=== PATIENT | female | born 1935 | race Caucasian/White ===

== ENCOUNTER → 2017-07-26 | Day surgery (SDC) | payer OTHER ==
[2017-07-13 15:22] VITALS: Ht 172.7 cm; Wt 72.7 kg
[~2017-07-26] VITALS: Ht 172.7 cm; Wt 72.7 kg
[~2017-07-26] MED LIST: 500ML BSS 0.3ML EPI 1:1000PF IRRIG ONE; ACETAMINOPHEN 325 MG TAB PO PRN; ALEN70TA2 PO; AMLO2.5T PO; AMVISC PLUS 0.8ML SYRINGE INT OCU ONE; ASCA500 PO; ATROPINE SULFATE 0.1 MG/ML 5ML SYR IV PRN; BRIMONIDINE TART 0.2% OP SOLN PER DROP CHARGE ONE; BSS FLUSH ONE; CALC600T9 PO; ENDOCOAT 0.85ML SYRINGE INT OCU ONE; EpHEDrine SULFATE INJ 50 MG/ML AMP IV PRN; EpINEphrine INJ 1MG/ML AMP 1 MG/ML AMP ONE; HYDR25TA4 PO; LACTATED RINGER'S 1000ML 500 ML IV SCH; LIDOCAINE 4% OP SOLN DROP CHARGE ONE; LIDOCAINE 4% OP SOLN DROP CHARGE OPL SCH; LIDOCAINE HCL 1% MPF 2 ML VIAL ONE; LSN40 PO; MIDAZOLAM HCL 1 MG/ML 2ML VIAL ONE; MOXIFLOXACIN OPH SOLN PER DROP CHARGE ONE; MULTCAP33 PO; POTA99TA PO; POVIDONE-IODINE OP SOLN 30 ML BTL ONE; PRLSR20 PO; PROPARACAINE 0.5% OP SOLN PER DROP CHARGE OPL SCH; SERT25TA PO; SIMV20TA2 PO; TOBRAMYCIN/DEXAMETHASONE OPH OINT PER APPLN CHARGE ONE; VTMB122500 PO
[2017-07-26] MEDS: PHENYLEPHRINE HCL 2.5% OP SOLN PER DROP CHARGE OPL SCH ×2 (08:05→08:10)
--- NOTE | 2017-07-26 08:05 | History & Physical Bridge - SC ---
H&P Re-Evaluation Bridge Note: I have examined the patient, reviewed the History & Physical and in the interval since the performance of the History & Physical I have noted the following changes of clinical significance: No changes noted
[2017-07-26] MEDS: TROPICAMIDE 1% OP SOLN PER DROP CHARGE OPL SCH ×2 (08:06→08:11)
[2017-07-26] MEDS: CYCLOPENTOLATE HCL 1% OP SOLN PER DROP CHARGE OPL SCH ×2 (08:07→08:12)
[2017-07-26] MEDS: KETOROLAC 0.5% OP SOLN PER DROP CHARGE OPL SCH ×2 (08:08→08:13)
[2017-07-26] MEDS: MOXIFLOXACIN OPH SOLN PER DROP CHARGE OPL SCH ×2 (08:09→08:19)
--- NOTE | 2017-07-26 08:56 | [facility] Operative Report ---
Operative Report Operative Date Jul 26, 2017. Pre-Operative Diagnosis Cataract Left Eye Post-Operative Diagnosis same as preop Procedure(s) Performed Left Cataract Phacoemulsification With Intraocular Lens Implant Surgeon Dr. Madison Transportation Mechanic Surgeon(s) none Estimated Blood Loss 0ml Findings cataract left eye Fluids see anesthesia record Specimens none Drains None Anesthesia Type MAC Complication(s) none Disposition no Recovery Room / PACU Indications decreased vision left eye Description of Procedure After informed consent was obtained in the holding area the patient was wheeled back to the operating room where cardiac monitoring leads and oxygen by nasal cannula was administered by Anesthesia. Gentle IV sedation was given, and the patient's left eye was prepped and draped in usual sterile fashion. A wire lid speculum was placed into the left eye and the operating microscope was swung into position. Using 0.12 forceps and a Supersharp blade a paracentesis port was made 2 o'clock hours away from the 3 o'clock position of the patient's left eye. 1% non-preserved Lidocaine was then injected into the anterior chamber for anesthesia. A 2.0 mm keratotome blade was then used to make a shelved clear corneal incision at the 3 o'clock position of the left eye. Amvisc was injected into the anterior chamber and a cystotome and Utrata forceps were used to perform a curvilinear capsulorrhexis. BSS on a hydrodissection cannula was used to hydrodissect the lens nucleus away from the capsular bag. The phacoemulsification handpiece was then used in a stop and chop fashion to remove the lens nucleus. The irrigation and aspiration handpiece was then used to remove the residual cortical material. Amvisc was injected into the capsular bag and anterior chamber and a Bausch & Lomb MX60 19.5 Diopter intraocular lens was injected into the capsular bag. Irrigation and aspiration handpiece was used to remove the residual viscoelastic material. The wounds were hydrated and noted to be watertight. The wire lid speculum was removed from the eye. Vigamox, Brimonidine, and TobraDex ointment were placed on the eye and it was shielded. It should be noted that EndoCoat was used extensively during the case to protect the cornea endothelium. DISPOSITION: The patient tolerated the procedure well and was wheeled to the post anesthesia care unit in stable condition. I attest to the content of the Intraoperative Record and any orders documented therein. Any exceptions are noted below. I attest to the content of the Intraoperative Record and any orders documented therein. Any exceptions are noted below.
[2017-07-26 08:58] VITALS: TEMP 36
--- NOTE | 2017-07-26 08:58 | Discharge Instructions-SurgCtr ---
Discharge Instructions Date of Service Jul 26, 2017. Visit Reason for Visit: Cataract Left Eye Discharge Discharge Diagnosis / Problem: cataract left eye Discharge Goals Goal(s): Improve function Activity Recommendations Activity Limitations: per Instructions/Follow-up section Lifting Limitations: no more than 5 pounds Anesthesia . Post Anesthesia Instructions: If you have had General Anesthesia or IV Sedation: * Do not drive today. * Resume driving when surgeon permits. * Do not make important decisions or sign legal documents today. * Call surgeon for: 1. Temperature elevations greater than 101 degrees F. 2. Uncontrollable pain. 3. Excessive bleeding. 4. Persistent nausea and vomiting. 5. Medication intolerance (nausea, vomiting or rash). * For nausea and vomiting use only clear liquids such as: tea, soda, bouillon until nausea subsides, then gradually increase diet as tolerated. * If you have any concerns or questions, call your surgeon's office. If physician is unavailable and it is an emergency, call 911 or go to the nearest emergency room. . Instructions / Follow-Up Instructions / Follow-Up ACTIVITY RECOMMENDATIONS: * Light activities * You may walk outside, read, watch television. * Mild irritation and blurred vision are common for the first few days, redness around the white part of the eye is common. MEDICATIONS: Resume previous medications unless instructed otherwise by your surgeon. Eye drops (today and tomorrow): Gatifloxacin - one drop in operative eye every 2 hours while awake Prednisolone 1% - one drop in operative eye every 2 hours while awake Bromfenac - one drop in operative eye once daily SPECIAL CARE INSTRUCTIONS: * If any problems or concerns, please call Dr. Madison's office at . * Keep plastic shield taped over eye to sleep at night. * Keep plastic shield taped over eye except to administer eye drops. * Keep plastic shield on until office visit the following day. FOLLOW UP VISIT: Follow-up with Dr. Madison in the [place] office as scheduled. If not already scheduled, please call the office at . Diet Recommendations Home Diet: resume previous diet Procedures Procedures Performed: Left Cataract Phacoemulsification With Intraocular Lens Implant Pending Studies Studies pending at discharge: no Medical Emergencies . Who to Call and When: Medical Emergencies: If at any time you feel your situation is an emergency, please call 911 immediately. . Non-Emergent Contact Non-Emergency issues call your: Cut Out Stitcher . . "Provider Documentation" section prepared by Stevan Madison. .
--- NOTE | 2017-07-26 09:12 | Anesthesia Progress Nt - [facility] ---
Anesthesia Post Op Note Date & Time Jul 26, 2017 at 09:11 Vital Signs Pain Intensity: 0 Vital Signs Past 12 Hours Date Time Temp Pulse Resp B/P (MAP) Pulse Ox O2 Delivery O2 Flow Rate FiO2 07/26/17 08:58 36 61 16 123/79 (94) 94 Room Air 07/26/17 07:51 36.5 70 18 147/82 (103) 95 Room Air Notes Mental Status: alert / awake / arousable, participated in evaluation Pt Amnestic to Procedure: Yes Nausea / Vomiting: adequately controlled Pain: adequately controlled Airway Patency, RR, SpO2: stable & adequate BP & HR: stable & adequate Hydration State: stable & adequate Anesthetic Complications: no major complications apparent
[2017-07-26 09:34] VITALS: BP 125/72; PULSE 58; O2SAT 96
== END | disposition home or self-care (01) ==
LOC: X.SURG 07:30
PROVIDERS: ATTEND Ophthalmology
DX: H26.9 Unspecified cataract (principal); I10 Essential (primary) hypertension; Z88.0 Allergy status to penicillin; F32.9 Major depressive disorder, single episode, unspecified; Z79.82 Long term (current) use of aspirin; Z79.899 Other long term (current) drug therapy

== ENCOUNTER → 2017-08-16 | Day surgery (SDC) | payer OTHER ==
[2017-08-06 08:33] VITALS: Ht 172.7 cm; Wt 72.7 kg
[~2017-08-16] VITALS: Ht 172.7 cm; Wt 72.7 kg
[~2017-08-16] MED LIST changes: -LIDOCAINE 4% OP SOLN DROP CHARGE OPL SCH; +LIDOCAINE 4% OP SOLN DROP CHARGE OPR SCH; -PROPARACAINE 0.5% OP SOLN PER DROP CHARGE OPL SCH; +PROPARACAINE 0.5% OP SOLN PER DROP CHARGE OPR SCH
[2017-08-16] MEDS: PHENYLEPHRINE HCL 2.5% OP SOLN PER DROP CHARGE OPR SCH ×2 (08:48→08:53)
[2017-08-16] MEDS: TROPICAMIDE 1% OP SOLN PER DROP CHARGE OPR SCH ×2 (08:49→08:54)
[2017-08-16] MEDS: CYCLOPENTOLATE HCL 1% OP SOLN PER DROP CHARGE OPR SCH ×2 (08:50→08:55)
[2017-08-16] MEDS: KETOROLAC 0.5% OP SOLN PER DROP CHARGE OPR SCH ×2 (08:51→08:56)
[2017-08-16] MEDS: MOXIFLOXACIN OPH SOLN PER DROP CHARGE OPR SCH ×2 (08:52→08:59)
--- NOTE | 2017-08-16 10:14 | [facility] Operative Report ---
Operative Report Operative Date August 16, 2017. Pre-Operative Diagnosis Right Eye Cataract Post-Operative Diagnosis same as preop Procedure(s) Performed Right Cataract Phacoemulsification With Intraocular Lens Implant Surgeon Dr. Madison Lawnmower Repair Mechanic Surgeon(s) none Estimated Blood Loss 0ml Findings cataract right eye Fluids see anesthesia record Specimens none Drains None Anesthesia Type MAC Complication(s) none Disposition no Recovery Room / PACU Indications decreased vision right eye Description of Procedure After informed consent was obtained in the holding area the patient was wheeled back to the operating room where cardiac monitoring leads and oxygen by nasal cannula was administered by Anesthesia. Gentle IV sedation was given, and the patient's right eye was prepped and draped in usual sterile fashion. A wire lid speculum was placed into the right eye and the operating microscope was swung into position. Using 0.12 forceps and a Supersharp blade a paracentesis port was made 2 o'clock hours away from the 9 o'clock position of the patient's right eye. 1% non-preserved Lidocaine was then injected into the anterior chamber for anesthesia. A 2.0 mm keratotome blade was then used to make a shelved clear corneal incision at the 9 o'clock position of the right eye. Amvisc was injected into the anterior chamber and a cystotome and Utrata forceps were used to perform a curvilinear capsulorrhexis. BSS on a hydrodissection cannula was used to hydrodissect the lens nucleus away from the capsular bag. The phacoemulsification handpiece was then used in a stop and chop fashion to remove the lens nucleus. The irrigation and aspiration handpiece was then used to remove the residual cortical material. Amvisc was injected into the capsular bag and anterior chamber and a Bausch & Lomb MX60E 20.0 Diopter intraocular lens was injected into the capsular bag. Irrigation and aspiration handpiece was used to remove the residual viscoelastic material. The wounds were hydrated and noted to be watertight. The wire lid speculum was removed from the eye. Vigamox, Brimonidine, and TobraDex ointment were placed on the eye and it was shielded. It should be noted that EndoCoat was used extensively during the case to protect the cornea endothelium. DISPOSITION: The patient tolerated the procedure well and was wheeled to the post anesthesia care unit in stable condition. I attest to the content of the Intraoperative Record and any orders documented therein. Any exceptions are noted below. I attest to the content of the Intraoperative Record and any orders documented therein. Any exceptions are noted below.
--- NOTE | 2017-08-16 10:15 | Discharge Instructions-SurgCtr ---
Discharge Instructions Date of Service August 16, 2017. Visit Reason for Visit: Cataract Right Eye Discharge Discharge Diagnosis / Problem: cataract right eye Discharge Goals Goal(s): Improve function Activity Recommendations Activity Limitations: per Instructions/Follow-up section Lifting Limitations: no more than 5 pounds Anesthesia . Post Anesthesia Instructions: If you have had General Anesthesia or IV Sedation: * Do not drive today. * Resume driving when surgeon permits. * Do not make important decisions or sign legal documents today. * Call surgeon for: 1. Temperature elevations greater than 101 degrees F. 2. Uncontrollable pain. 3. Excessive bleeding. 4. Persistent nausea and vomiting. 5. Medication intolerance (nausea, vomiting or rash). * For nausea and vomiting use only clear liquids such as: tea, soda, bouillon until nausea subsides, then gradually increase diet as tolerated. * If you have any concerns or questions, call your surgeon's office. If physician is unavailable and it is an emergency, call 911 or go to the nearest emergency room. . Instructions / Follow-Up Instructions / Follow-Up ACTIVITY RECOMMENDATIONS: * Light activities * You may walk outside, read, watch television. * Mild irritation and blurred vision are common for the first few days, redness around the white part of the eye is common. MEDICATIONS: Resume previous medications unless instructed otherwise by your surgeon. Eye drops (today and tomorrow): Gatifloxacin - one drop in operative eye every 2 hours while awake Prednisolone 1% - one drop in operative eye every 2 hours while awake Bromfenac - one drop in operative eye once daily SPECIAL CARE INSTRUCTIONS: * If any problems or concerns, please call Dr. Madison's office at . * Keep plastic shield taped over eye to sleep at night. * Keep plastic shield taped over eye except to administer eye drops. * Keep plastic shield on until office visit the following day. FOLLOW UP VISIT: Follow-up with Dr. Madison in the [place] office as scheduled. If not already scheduled, please call the office at . Diet Recommendations Home Diet: resume previous diet Procedures Procedures Performed: Right Cataract Phacoemulsification With Intraocular Lens Implant Pending Studies Studies pending at discharge: no Medical Emergencies . Who to Call and When: Medical Emergencies: If at any time you feel your situation is an emergency, please call 911 immediately. . Non-Emergent Contact Non-Emergency issues call your: Clinical Editor . . "Provider Documentation" section prepared by Stevan Madison. .
--- NOTE | 2017-08-16 10:30 | Anesthesia Progress Nt - [facility] ---
Anesthesia Post Op Note Date & Time August 16, 2017 at 10:30 Vital Signs Pain Intensity: 0 Vital Signs Past 12 Hours Date Time Temp Pulse Resp B/P (MAP) Pulse Ox O2 Delivery O2 Flow Rate FiO2 08/16/17 10:16 36.7 58 16 150/85 (106) 96 Room Air 08/16/17 08:40 36.4 62 18 177/90 (119) 94 Room Air Notes Mental Status: alert / awake / arousable, participated in evaluation Pt Amnestic to Procedure: Yes Nausea / Vomiting: adequately controlled Pain: adequately controlled Airway Patency, RR, SpO2: stable & adequate BP & HR: stable & adequate Hydration State: stable & adequate Anesthetic Complications: no major complications apparent
[2017-08-16 10:35] VITALS: BP 161/79; PULSE 56; O2SAT 95
== END | disposition home or self-care (01) ==
LOC: X.SURG 08:23
PROVIDERS: ATTEND Ophthalmology
DX: H25.11 Age-related nuclear cataract, right eye (principal); I10 Essential (primary) hypertension; K21.9 Gastro-esophageal reflux disease without esophagitis; Z79.82 Long term (current) use of aspirin; Z88.0 Allergy status to penicillin

== ENCOUNTER 2020-08-16 07:33 | Observation (INO) ==
--- NOTE | 2020-07-19 13:07 | PAT Medication Instructions ---
Medication Instructions Date of Service July 19, 2020 Home Medications amlodipine 2.5 mg tablet 2.5 mg PO QAM cyanocobalamin (vitamin B-12) 100 mcg tablet 100 mcg PO QAM hydrochlorothiazide 25 mg tablet 25 mg PO QAM lisinopril 40 mg tablet 40 mg PO QAM multivitamin 1 tab PO QAM omeprazole 20 mg capsule,delayed release 20 mg PO QAM potassium gluconate 595 mg (99 mg) tablet 595 mg PO QAM sertraline 25 mg tablet 25 mg PO QAM simvastatin 20 mg tablet 20 mg PO QAM acetaminophen 500 mg PO TID ascorbic acid (vitamin C) [Vitamin C] 1 g PO QAM cholecalciferol (vitamin D3) [Vitamin D3] 1,000 unit PO QAM vit C,I-Ua-notlk-lutein-zeaxan [PreserVision AREDS-2] 1 tab PO BID STOP taking 2 weeks before surgery (or as soon as possible if surgery is within 2 weeks) vit C,V-Zr-dnesl-lutein-zeaxan [PreserVision AREDS-2] 1 tab PO BID DO NOT take the morning of surgery cyanocobalamin (vitamin B-12) 100 mcg tablet 100 mcg PO QAM hydrochlorothiazide 25 mg tablet 25 mg PO QAM lisinopril 40 mg tablet 40 mg PO QAM multivitamin 1 tab PO QAM potassium gluconate 595 mg (99 mg) tablet 595 mg PO QAM ascorbic acid (vitamin C) [Vitamin C] 1 g PO QAM cholecalciferol (vitamin D3) [Vitamin D3] 1,000 unit PO QAM Take morning of surgery With a small sip of water, OTHERWISE NOTHING TO EAT OR DRINK AFTER MIDNIGHT: amlodipine 2.5 mg tablet 2.5 mg PO QAM omeprazole 20 mg capsule,delayed release 20 mg PO QAM sertraline 25 mg tablet 25 mg PO QAM simvastatin 20 mg tablet 20 mg PO QAM acetaminophen 500 mg PO TID (okay to take up to 4 hours prior to surgery if needed) Take evening before surgery acetaminophen 500 mg PO TID Other Notes If you have any questions please call us at [phone] or [phone] or [phone] or [phone]
--- NOTE | 2020-07-22 11:09 | Anesthesiology Consultation ---
Date of Service July 22, 2020 Assessment & Plan (1) Encounter for pre-operative examination: - COVID screening: Per assessment on 07/22: Travel screen negative, no known COVID-19 positive contacts or current COVID-19 related symptoms. Patient fully v accinated. Surgeon arranging preop COVID testing (scheduled 08/12; [facility]). Awaiting results. - PCP office visit (06/28/20): Aware of upcoming orthopedic surgery. "She had shingles 2 years ago and has chronic itchiness from it.. Getting out walking.. She is getting her R knee done on 08/[address] Mccallum." Chart Review Chart Review: Acceptable Risk for Surgery and Patient seen in Pre Admission Testing Teaching & Discussion Pre-Anesthesia Teaching/Discussion Notes: Instructed NPO after midnight before surgery,except medications with 15 cc of water. Medication instructions provided according to the PAT guidelines. History Surgery Operation Date: 08/16/20 09:05 Proposed Procedures p Right Total Knee Arthroplasty - Malik Mccallum, DO Height/Weight Height: 5 ft 8 in Weight: 71.1 kg Allergies Allergy/AdvReac Type Severity Reaction Status Date / Time Penicillins Allergy Mild Rash Verified 07/19/20 15:58 Medications Home Medications Medication Instructions Recorded Confirmed Last Taken amlodipine 2.5 mg tablet 2.5 mg PO QAM 06/19/20 07/12/20 Unknown cyanocobalamin (vitamin B-12) 100 100 mcg PO QAM 06/19/20 07/12/20 Unknown mcg tablet hydrochlorothiazide 25 mg tablet 25 mg PO QAM 06/19/20 07/12/20 Unknown lisinopril 40 mg tablet 40 mg PO QAM 06/19/20 07/12/20 Unknown multivitamin 1 tab PO QAM 06/19/20 07/12/20 Unknown omeprazole 20 mg capsule,delayed 20 mg PO QAM 06/19/20 07/12/20 Unknown release potassium gluconate 595 mg (99 mg) 595 mg PO QAM 06/19/20 07/12/20 Unknown tablet sertraline 25 mg tablet 25 mg PO QAM 06/19/20 07/12/20 Unknown simvastatin 20 mg tablet 20 mg PO HS 06/19/20 07/22/20 Unknown acetaminophen 500 mg PO TID 07/12/20 07/12/20 Unknown ascorbic acid (vitamin C) [Vitamin 1 g PO QAM 07/12/20 07/12/20 Unknown C] cholecalciferol (vitamin D3) 1,000 unit PO QAM 07/12/20 07/12/20 Unknown [Vitamin D3] vit C,U-Aa-nzoog-lutein-zeaxan 1 tab PO BID 07/12/20 07/12/20 Unknown [PreserVision AREDS-2] Past Medical History Medical History Acid reflux Anxiety History of gastric ulcer Remote hx per records Hyperlipidemia Hypertension Macular degeneration of both eyes Memory loss occasional Senile osteoporosis Exercise / Class Metabolic Activity II 4-5 Yardwork/Stairs/Walk up hill Past Family History Family History Brother Family history of diabetes mellitus Other No family history of adverse response to anesthesia Past Surgical History Surgical History History of bilateral cataract extraction History of colonoscopy History of esophagogastroduodenoscopy (EGD) History of ovarian cystectomy History of tooth extraction Past Anesthesia History No Hx of Anesthesia Complications and No Family Hx of Anesthesia Complications History of PONV No Hx of PONV and No Hx of Motion Sickness Social History Smoking Status: Never smoker Do You Dip or Chew Tobacco: No Hx Alcohol Use: No Hx Substance Use: No substance use type: does not use Review of Systems Patient denies chest pain, shortness of breath, dyspnea on exertion, fever, chills, cough, wheezing, palpitations. Physical Exam Vital Signs VITALS BP 100/59 P 80 TEMP SP02 94%RA RESP 16 PHYSICAL Mildly decreased cervical extension range of motion. Full TMJ range of motion. TMD 3.5 finger breaths Mallampati Score 3 Dentition: lower/upper partial Lungs: clear throughout to auscultation Cardiac: regular rate and rhythm, no murmurs noted Spine: kyphosis Carotid arteries: negative bruit Extremities: no edema Testing Laboratory Results 07/22/20 11:35 07/22/20 11:35 PT 10.9 Seconds (9.0-12.0) 07/22/20 11:35 INR 1.1 (0.9-1.1) 07/22/20 11:35 APTT 28.0 Seconds (21.0-31.0) 07/22/20 11:35 Blood Type O Positive 07/22/20 11:35 Antibody Screen NEGATIVE 07/22/20 11:35 07/08/20 UA moderate blood, large esterase, negative nitrate, positive bacteria/WBC > pr escribed bactrim rx for complaints of UTI symptoms at time of testing > now resolved URINE CULTURE <[id number] colonies/ml mixed normal roland Electrocardiogram Date: 07/22/20 Findings: + NSR @ (70) Chest X-Ray Date: 07/22/20 FINDINGS: There is a moderate hiatus hernia, unchanged. The heart is normal in size. No pleural effusions. No pneumothorax. Calcifications within the aortic knob. Mild eventration of the right hemidiaphragm, unchanged. IMPRESSION: No acute process within the chest. Moderate hiatus hernia, unchange d.
[2020-07-22 11:56] LABS: Eosinophils # (auto) 0.09 K/uL (0-0.5); Eosinophils % (auto) 1.5 %; Hematocrit (blood only) 38.6 % (37-47); Hemoglobin 13.6 g/dL (12.0-16.0); Immature Granulocytes # (auto) 0.01 K/uL (0.00-0.02); Immature Granulocytes % (auto) 0.2 %; Lymphocytes # (auto) 1.49 K/uL (1.2-3.4); Lymphocytes % (auto) 24.3 %; Mean Corpuscular Hemoglobin 32.5 pg (25-34); Mean Corpuscular Hgb Conc 35.2 g/dL (32-36); Mean Corpuscular Volume 92.1 fL (80-100); Mean Platelet Volume 9.5 fL (7.4-10.4); Monocytes # (auto) 0.56 K/uL (0.11-0.59); Monocytes % (auto) 9.2 %; Neutrophils # (auto) 3.97 K/uL (1.4-6.5); Neutrophils % (auto) 64.8 %; Platelet Count 234 K/uL (130-400); RDW Coefficient of Variation 13.1 % (11.5-14.5); RDW Standard Deviation 44.5 fL (36.4-46.3); Red Blood Count 4.19 M/uL (4.2-5.4); White Blood Count 6.12 K/uL (4.8-10.8)
[2020-07-22 12:06] LABS: INR 1.1 (0.9-1.1); Partial Thromboplastin Ratio 1.1; Prothrombin Time 10.9 Seconds (9.0-12.0)
--- NOTE | 2020-07-22 12:20 | XRay Report ---
XR chest Pre-admission PA/Lat HISTORY: Preop. COMPARISON: Chest 06/20/2010. FINDINGS: There is a moderate hiatus hernia, unchanged. The heart is normal in size. No pleural effus ions. No pneumothorax. Calcifications within the aortic knob. Mild eventration of the right hemidiaph ragm, unchanged. IMPRESSION: 1. No acute process within the chest. 2. Moderate hiatus hernia, unchanged. ACT 112: Negative or not required by law. Electronically signed by: Jose Han M.D. 07/22/2020 12:19 PM
[2020-07-22 14:04] LABS: BUN Creatinine Ratio 24.3 (10-20); Calcium 8.9 mg/dl (8.5-10.1); Creatinine Clr Calc Pharmacy 55.3 ml/min; Est GFR (African American) 84.2; Est GFR (Non-African American) 72.7; Potassium 4.3 mmol/L (3.5-5.1)
--- NOTE | 2020-07-22 17:39 | Electrocardiogram Report ---
Test Reason : Blood Pressure : / mmHG Vent. Rate : 070 BPM Atrial Rate : 070 BPM P-R Int : 132 ms QRS Dur : 080 ms QT Int : 374 ms P-R-T Axes : 047 001 050 degrees QTc Int : 403 ms Normal sinus rhythm Normal ECG When compared with ECG of 09-JUN-2010 10:27, T wave inversion no longer evident in Inferior leads Confirmed by Adam Huff ([id number]) on 07/22/2020 5:38:51 PM Referred By: Malik Mccallum Confirmed By:Juan Francisco Huff
--- NOTE | 2020-08-15 07:39 | History & Physical Report ---
Date of Service August 15, 2020 Assessment & Plan (1) Osteoarthritis of right knee: We will proceed with a right total knee arthroplasty. Postoperatively she will be placed on aspirin for DVT prophylaxis and kept overnight in the hospital for postoperative medical management. She plans to use English Helper upon discharge. History of Present Illness Chief Complaint: Osteoarthritis right knee. Primary Care Provider: Chino SimpsonDO Rodriguez is a pleasant 85-year-old female who is been ill with chronic increasing right knee pain. X-rays and clinical examination have been diagnostic for advanced osteoarthritis of the right knee. After failing extensive conservative treatment, she has elected proceed with a right total knee arthroplasty.. Allergies Allergy/AdvReac Type Severity Reaction Status Date / Time Penicillins Allergy Mild Rash Verified 07/19/20 15:58 Home Medications Medication Instructions Recorded Confirmed Type amlodipine 2.5 mg tablet 2.5 mg PO QAM 06/19/20 07/12/20 History cyanocobalamin (vitamin B-12) 100 100 mcg PO QAM 06/19/20 07/12/20 History mcg tablet hydrochlorothiazide 25 mg tablet 25 mg PO QAM 06/19/20 07/12/20 History lisinopril 40 mg tablet 40 mg PO QAM 06/19/20 07/12/20 History multivitamin 1 tab PO QAM 06/19/20 07/12/20 History omeprazole 20 mg capsule,delayed 20 mg PO QAM 06/19/20 07/12/20 History release potassium gluconate 595 mg (99 mg) 595 mg PO QAM 06/19/20 07/12/20 History tablet sertraline 25 mg tablet 25 mg PO QAM 06/19/20 07/12/20 History simvastatin 20 mg tablet 20 mg PO HS 06/19/20 07/22/20 History acetaminophen 500 mg PO TID 07/12/20 07/12/20 History ascorbic acid (vitamin C) [Vitamin 1 g PO QAM 07/12/20 07/12/20 History C] cholecalciferol (vitamin D3) 1,000 unit PO QAM 07/12/20 07/12/20 History [Vitamin D3] vit C,L-Ok-xnbrg-lutein-zeaxan 1 tab PO BID 07/12/20 07/12/20 History [PreserVision AREDS-2] Past Med/Surg History Medical History Acid reflux Anxiety History of gastric ulcer Remote hx per records Hyperlipidemia Hypertension Macular degeneration of both eyes Memory loss occasional Senile osteoporosis Surgical History History of bilateral cataract extraction History of colonoscopy History of esophagogastroduodenoscopy (EGD) History of ovarian cystectomy History of tooth extraction Family History Brother Family history of diabetes mellitus Other No family history of adverse response to anesthesia Social History Smoking Status: Never smoker Second Hand Exposure: No; Hx Alcohol Use: No Hx Substance Use: No Preferred Language: Ukrainian Communication Ability: Effective Line Crew Supervisor Required: No Beliefs That Will Affect Care: None Current Living Situation: Spouse Assistive Devices: Denture - Upper and Glasses Review of Systems All systems reviewed & are unremarkable except as noted in HPI & below. Physical Exam On physical examination of the right knee, she has range of motion from 10 to 110 degrees. She cannot get full extension. She has no instability. She does have pain over the distal medial femoral condyle and over the lateral condyles as well.. Constitutional WD/WN, vitals as above Eyes PERRL, conjunctivae normal, anicteric sclerae ENMT external ear and nose normal, oropharynx normal Neck trachea midline, no thyromegaly Respiratory normal respiratory effort Cardiovascular RRR, no murmur, no edema Gastrointestinal (Abdomen) normal bowel sounds, soft, nontender, no hepatosplenomegaly Psychiatric A+Ox3, euthymic affect Results & Data Results & Data Laboratory Results . Diagnostic Findings X-rays of the right knee do show advanced osteoarthritis with joint space narrowing osteophyte formation and cenq-[id number]-czhp articulation.. PG Care Time/CCT Total # of Minutes Spent Total Time Spent with Patient: Total time spent is greater than 50% in coordination of care (as documented) at patient's floor/unit and/or counseling patient: Coding Level of Care Code None Diagnoses Osteoarthritis of right knee M17.11
[~2020-08-16 07:33] MED LIST changes: -500ML BSS 0.3ML EPI 1:1000PF IRRIG ONE; -ACETAMINOPHEN 325 MG TAB PO PRN; +ACETAMINOPHEN 500 MG TAB PO SCH; -ALEN70TA2 PO; -AMLO2.5T PO; -AMVISC PLUS 0.8ML SYRINGE INT OCU ONE; -ASCA500 PO; -ATROPINE SULFATE 0.1 MG/ML 5ML SYR IV PRN; -BRIMONIDINE TART 0.2% OP SOLN PER DROP CHARGE ONE; -BSS FLUSH ONE; +BUPIVACAINE 0.25% 30 ML VIAL ONE; +BUPIVACAINE 0.5 % 5 MG/1 ML PF 10ML VIAL ONE; -CALC600T9 PO; -ENDOCOAT 0.85ML SYRINGE INT OCU ONE; +EPINEPHrine INJ 1 MG/ML AMP ONE; -EpHEDrine SULFATE INJ 50 MG/ML AMP IV PRN; -EpINEphrine INJ 1MG/ML AMP 1 MG/ML AMP ONE; +FAMOTIDINE 20 MG TAB PO SCH; +GABAPENTIN 300 MG CAP PO SCH; -HYDR25TA4 PO; -LACTATED RINGER'S 1000ML 500 ML IV SCH; -LIDOCAINE 4% OP SOLN DROP CHARGE ONE; -LIDOCAINE 4% OP SOLN DROP CHARGE OPR SCH; -LIDOCAINE HCL 1% MPF 2 ML VIAL ONE; +LR 15ML/HR IV SCH; +LR 500ML BOLUS IV SCH; +LR 500ML BOLUS, THEN 15ML/HR IV SCH; +LR 60ML/HR IV SCH; -LSN40 PO; -MOXIFLOXACIN OPH SOLN PER DROP CHARGE ONE; -MULTCAP33 PO; -POTA99TA PO; -POVIDONE-IODINE OP SOLN 30 ML BTL ONE; -PRLSR20 PO; -PROPARACAINE 0.5% OP SOLN PER DROP CHARGE OPR SCH; +ROPIVACAINE 0.5% HCL/PF 150 MG, BUPIVACAINE 0.75% MPF 20 ML, EPINEPHrine 30MG/30ML (OR ... INFIL SCH; -SERT25TA PO; -SIMV20TA2 PO; -TOBRAMYCIN/DEXAMETHASONE OPH OINT PER APPLN CHARGE ONE; +TRANEXAMIC ACID 1,000 MG **IV Intra-op IV SCH; +TRANEXAMIC ACID 1,000 MG **IV Pre-op IV SCH; -VTMB122500 PO; +ceFAZolin 1000MG 1,000 MG/7.5 ML SYR IV SCH; +dexAMETHasone 4 MG TAB PO SCH
[2020-08-16] MEDS ORDERED: BUPIVACAINE 0.25% 30 ML VIAL ONE (07:59)
--- NOTE | 2020-08-16 08:18 | History & Physical Bridge Note ---
Date of Service August 16, 2020 History & Physical Bridge Note I have examined the patient, reviewed the History & Physical and in the interval since the performance of the History & Physical I have noted the following changes of clinical significance: no changes noted
[2020-08-16] MEDS ORDERED: ORTHO JOINT ANESTHETIC ONE (08:39)
[2020-08-16] MEDS ORDERED: fentaNYL citrate 100 MCG/2 ML VIAL IV PRN (08:45)
[2020-08-16] MEDS ORDERED: ONDANSETRON INJ 2 MG/ML 2 ML VIAL IV PRN ×2 (08:45→12:03)
[2020-08-16] MEDS ORDERED: ePHEDrine sulfate 50 MG/ML AMP IV PRN (08:45)
[2020-08-16] MEDS ORDERED: ATROPINE SULFATE 0.1 MG/ML 10ML SYR IV PRN (08:45)
[2020-08-16] MEDS ORDERED: HYDROmorphone INJ 2 MG/ML SYR/VIAL IV PRN (08:45)
[2020-08-16] MEDS ORDERED: PROPOFOL IV EMULSION 10 MG/ML 20 ML VIAL IV ONE ×2 (09:12→09:55)
[2020-08-16] MEDS ORDERED: ePHEDrine sulfate 50 MG/ML SYR ONE (09:39)
--- NOTE | 2020-08-16 10:29 | Operative Report ---
PG Post Operative Report Pre & Post Diagnosis Operation Date: 08/16/20 10:00 Pre-Op Diagnosis: Right Knee Degenerative Joint Disease Post-Op Diagnosis: Right Knee Degenerative Joint Disease I identified the patient and participated in the time-out.: Yes Procedure Operation Date: 08/16/20 10:00 Actual Procedures p Right Total Knee Arthroplasty, Cemented(Right) - Malik Mccallum DO Surgeon Malik Mccallum DO [employer] Malik Montano PAC Estimated Blood Loss 10 Findings Consistent with Post-Op Diagnosis Specimens Right femoral and tibial bone Complications none Disposition Disposition: Recovery Room Indications Jennifer is a pleasant 85-year-old female who has been dealing with chronic increasing right knee pain. X-rays and clinical examination are diagnostic for advanced osteoarthritis of the right knee. After failing conservative treatment, she has elected to proceed with a right total knee arthroplasty. Description of Procedure Implants used: I used a Ade Person[employer] total knee arthroplasty system with a size 9 standard femur, E tibia with a 30 mm stem, 32 patella, and a size 11 medial congruent polyethylene bearing. All components were cemented in place with Simplex HV cement. Jennifer arrived [facility] for the above procedure. She was seen in the preoperative holding area and the operative extremity was identified and signed. She was given a preoperative antibiotic, TXA, a spinal anesthetic and an adductor nerve block. She was taken back to the operating room and laid on the table in supine position. She was given basic sedation. The operative knee was then prepped and draped in sterile fashion. A timeout was done, and the patient and the operative extremity was properly identified. A midline incision was made directly over the patella. Dissection was taken down to the extensor mechanism. A subvastus arthrotomy was used. The medial retinaculum was released and the fat pad was mostly excised. The knee was flexed and the ACL, PCL, and meniscus were removed. A drill was sent down the center of the femoral canal followed by an intramedullary karon. Off that karon a distal femoral cutting block was placed. 9 mm was resected off the distal femur at 5 of valgus. A posterior referencing AP sizing guide was then placed on the distal femur. The femur measured to be a size 9. 2 drill holes were placed in 3 of external rotation. A 4-in-1 cutting block was then impacted into place. Anterior, posterior, and chamfer cuts were then made. The proximal tibia was then exposed. An external tibial alignment guide was placed. A tibial cut guide was then anchored in place and the proximal tibia was then resected. The posterior aspect of the knee was then opened up and any additional meniscus fragments and osteophytes were removed. The tibia measured to be a size E. The tibial plate was then placed in the appropriate rotation and the tibia was drilled and punched. Trial components were then placed. I used a size 11 medial congruent polyethylene insert. The knee was brought through a full range of motion and felt to be stable. The peg holes for the femoral component were then drilled. The patella was then everted and 9 mm was resected off the posterior aspect of the patella. The patella measured to be a size 32. 3 peg holes were then drilled. A trial patella was placed. The knee was once again brought through a full range of motion and felt to be stable. Trial components were then removed. The surrounding soft tissues were injected with 100 cc of an orthopedic pain control cocktail. All components were then cemented into place with Simplex HV cement. The final polyethylene insert was then snapped into place. Once cement was dry the tourniquet was deflated. Hemostasis was obtained. A dilute betadyne lavage was then done for 3 minutes. The joint was then irrigated with normal saline solution. The subvastus arthrotomy was then closed with #1 Vicryl suture. The skin was closed with 2-0 Vicryl, 3-0V lock suture, and elizabeth. A Silverlon and a soft compressive dressing were placed. She was then transferred to a hospital bed and taken to the postanesthesia care unit in stable condition. She tolerated the procedure well. Malik Montano PA-C, was present for the entire procedure. He was critical for patient positioning, prepping, draping, retraction exposure, wound closure and application of sterile dressing. I attest to the content of the Intraoperative Record and any orders documented therein. Any exceptions are noted below.
--- NOTE | 2020-08-16 11:46 | XRay Report ---
XR knee RT 1 or 2V routine CLINICAL HISTORY: Surgical Post Op COMPARISON: None. DISCUSSION: There are postsurgical changes of a total right knee arthroplasty and patellar resurfacin g. The femoral tibial components appear well seated. There are overlying skin elizabeth. There is gas p resent within the soft tissues consistent with recent surgery. There is an old healed proximal fibula r fracture. IMPRESSION: Postsurgical changes of a total right knee arthroplasty. ACT 112: Negative or not required by law. Electronically signed by: Juan M Dawkins M.D. 08/16/2020 11:45 AM
[2020-08-16] MEDS ORDERED: HYDROmorphone INJ 0.5 MG/0.5 ML SYR IV PRN (12:03)
[2020-08-16] MEDS ORDERED: NALOXONE HCL 0.4 MG/1 ML VIAL/CARP IV PRN (12:03)
[2020-08-16] MEDS ORDERED: MAGNESIUM HYDROXIDE SUSP 30 ML UDC PO PRN (12:03)
[2020-08-16] MEDS ORDERED: METOCLOPRAMIDE HCL INJ 5 MG/ML 2 ML VIAL IV PRN (12:03)
[2020-08-16] MEDS ORDERED: oxyCODONE HCL IR 5 MG TAB (IMMEDIATE RELEASE) PO PRN (12:03)
[2020-08-16] MEDS ORDERED: bisacodyL 10 MG SUPP PR PRN (12:03)
[2020-08-16] MEDS: SODIUM CHLORIDE 0.9% 1000ML 1,000 ML IV SCH ×2 (12:36→22:36)
--- NOTE | 2020-08-16 13:02 | Anesthesiology Progress Note ---
Date of Service August 16, 2020 Anesthesia Post Procedure Vital Signs Vital Signs: Temp Pulse Pulse Resp BP BP Pulse Ox 08/16/20 12:35 36.8 C 77 17 126/71 100 08/16/20 12:00 36.2 C L 61 16 112/53 L 98 08/16/20 11:45 61 18 112/53 L 98 08/16/20 11:30 36.2 C L 64 18 115/51 L 99 08/16/20 11:20 69 18 122/56 L 95 08/16/20 11:10 64 16 116/54 L 94 08/16/20 11:00 78 16 128/60 96 08/16/20 10:54 36.2 C L 81 16 126/63 99 08/16/20 07:56 36.7 C 77 18 147/90 H 96 Transfer of Care Handoff Completed per policy Notes Mental Status: alert / awake / arousable and participated in evaluation Patient Amnestic to Procedure: Yes Nausea / Vomiting: adequately controlled Pain: adequately controlled Airway Patency, RR, SpO2: stable & adequate BP & HR: stable & adequate Hydration State: stable & adequate Anesthetic Complications: no major complications apparent and Pt Satisfied with anesthetic care
[2020-08-16] MEDS: KETOROLAC TROMETHAMINE 15 MG/ML VIAL IV SCH ×2 (14:22→20:53)
[2020-08-16] MEDS: ceFAZolin 2000MG 2,000 MG/15 ML SYR IV SCH (16:57)
[2020-08-16] MEDS: ACETAMINOPHEN 500 MG TAB PO SCH ×2 (16:57→22:36)
[2020-08-16] MEDS: DOCUSATE SODIUM 100 MG CAP PO SCH (20:55)
[2020-08-16] MEDS: ASPIRIN 81 MG ECTAB PO SCH (20:55)
[2020-08-16] MEDS ORDERED: SENNA 8.6 MG TAB PO SCH (21:00)
[2020-08-16] MEDS ORDERED: SIMVASTATIN 20 MG TAB PO SCH (21:00)
[2020-08-17] MEDS: KETOROLAC TROMETHAMINE 15 MG/ML VIAL IV SCH ×2 (01:50→08:02)
[2020-08-17] MEDS: ceFAZolin 2000MG 2,000 MG/15 ML SYR IV SCH (01:50)
--- NOTE | 2020-08-17 07:42 | Orthopedic Progress Note ---
Date of Service August 17, 2020 Assessment & Plan (1) Status post right knee replacement: Overall she is doing well. She is having much pain in the right knee. She will be seen by physical therapy today for ambulation and range of motion exercises. She is on aspirin for DVT prophylaxis. She can be discharged home later today. She will follow-up with orthopedics in 2 weeks. Margarita Rodriguez was seen and examined at bedside this morning. Overall she is doing very well. She denies any much pain in the knee. She has been ambulating with the nursing staff. She has no complaints.. Review of Systems All systems reviewed & are unremarkable except as noted in HPI & below. Physical Exam On physical examination of the right knee, she is sitting in a chair at bedside with the knee flexed at almost 100 degrees. She has full leg extension. She has active dorsiflexion and plantarflexion of her right ankle.. Results & Data Results & Data Laboratory Results . Diagnostic Findings Postoperative x-rays of the right knee show the prosthesis to be in anatomic alignment without any evidence of fracture, dislocation, or loosening. PG Care Time/CCT Total # of Minutes Spent Total Time Spent with Patient: Total time spent is greater than 50% in coordination of care (as documented) at patient's floor/unit and/or counseling patient: Coding Level of Care Code 76887 Post Operative Follow-Up Diagnoses Status post right knee replacement Z96.651
[2020-08-17] MEDS ORDERED: dexAMETHasone 4 MG TAB PO SCH (08:00)
[2020-08-17] MEDS: DOCUSATE SODIUM 100 MG CAP PO SCH (08:04)
[2020-08-17] MEDS: ACETAMINOPHEN 500 MG TAB PO SCH (08:04)
[2020-08-17] MEDS: ASPIRIN 81 MG ECTAB PO SCH (08:04)
[2020-08-17] MEDS ORDERED: MULTIVITAMIN TAB PO SCH (09:00)
[2020-08-17] MEDS ORDERED: NON-FORMULARY MEDICATION (Potassium Gluconate 595 mg (99 mg) tablet) PO SCH (09:00)
[2020-08-17] MEDS ORDERED: hydroCHLOROthiazide 25 MG TAB PO SCH (09:00)
[2020-08-17] MEDS ORDERED: lisinopril 40 MG TAB PO SCH (09:00)
[2020-08-17] MEDS ORDERED: amLODIPine BESYLATE 5 MG TAB PO SCH (09:00)
[2020-08-17] MEDS ORDERED: SERTRALINE HCL 50 MG TABLET PO SCH (09:00)
== END 2020-08-17 11:28 | disposition home health service (06) ==
LOC: ASU 07:33 → 3E 07:33
DX: Z79.899 Other long term (current) drug therapy; Z88.0 Allergy status to penicillin; E78.5 Hyperlipidemia, unspecified; I10 Essential (primary) hypertension; M17.11 Unilateral primary osteoarthritis, right knee